=== PATIENT | female | born 1960 | race Caucasian/White ===

== ENCOUNTER 2018-08-28 12:30 | Outpatient (RCR) | payer OTHER, MEDICAID, SELFPAY ==
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
== END 2018-12-12 14:33 | disposition home or self-care (01) ==
LOC: OT 12:30
PROVIDERS: PCP Family Medicine; Visit Provider Family Medicine
DX: S06.9X9A Unspecified intracranial injury with loss of consciousness of unspecified duration, initial encounter (principal)
CPT/HCPCS: 97112; 97166; 97530

== ENCOUNTER 2018-09-28 13:30 | Outpatient (RCR) | payer OTHER, MEDICAID, SELFPAY | END 2018-11-26 11:27 | disposition home or self-care (01) | LOC: SP 13:30 | PROVIDERS: PCP Family Medicine; Visit Provider Family Medicine | DX: S06.9X9A Unspecified intracranial injury with loss of consciousness of unspecified duration, initial encounter (principal) | CPT/HCPCS: 92523; 97127 ==

== ENCOUNTER 2018-10-03 11:15 | Outpatient (RCR) | payer OTHER, MEDICAID, SELFPAY ==
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
--- NOTE | 2018-07-18 18:14 | PT.OPPOC ---
Current Diagnoses Pain in right shoulder (07/18/18) Stiffness of right shoulder, not elsewhere classified (07/18/18) Muscle weakness (generalized) (07/18/18) Dizziness and giddiness (07/18/18) Unspecified intracranial injury with loss of consciousness of unspecified duration, subsequent encounter (07/18/18) Other fall on same level, initial encounter (07/18/18) History of falling (07/18/18) Provider Visit Care Team Role Provider Type Loulou Rivas DO Attending Provider Non-Staff Primary Care Provider Specialty: Medical Address: [address] [place] [address], [id number] Email: Plan Of Care PT-OP-T Assessment and Plan Start: 07/18/18 17:37 Freq: Status: Active Protocol: Document 07/18/18 12:15 DCW (Rec: 07/18/18 18:14 DCW [id number]) Physical Therapy Assessment Rehab Potential Rehabilitation Potential Fair Evaluation Complexity Number of Personal Factors/Comorbidities 3 or More Number of Body Systems Impaired 4 or More Clinical Presentation at Evaluation Unstable Impairments Impairments Activity Tolerance Balance Coordination Functional Activities Functional Mobility Gait Pain ROM Soft Tissue Mobility Strength Other Concerns Barriers to Rehabilitation Hx of Methamphetamine and benzodiazepene abuse, ETOH abuse, cervical collar, severe TBI, occasional expressive aphasia/word-finding difficulty, confusion Goals Four Impairment Repeated falls Graduate Civil Engineer Goal (LTG) Pt to report no falls over a one month period LTG Duration 09/18/18 Three Impairment DGI Graduate Civil Engineer Goal (LTG) Pt to score 24 on DGI LTG Duration 09/18/18 Two Impairment Shoulder ROM Short Term Goal (STG) Left AROM of shoulder to 120? in both flexion and abduction STG Duration 08/18/18 Graduate Civil Engineer Goal (LTG) Right AROM to 60? flexion and abduction Right PROM to 120? flexion and abduction LTG Duration 09/18/18 One Impairment Pt does not have an appropriate home exercise program Short Term Goal (STG) Pt to be independent and complaint with an appropriate HEP STG Duration 08/18/18 Assessment Summary Assessment Pt is a complicated patient presenting with multiple deficits and rehab barriers. Between her complicated history, long list of deficits , and late arrival to her evaluation, more testing and assessment is needed at her next visit. Pt's right shoulder injury significantly limits her mobility, function, and ADL, and further testing should be performed to assess possible R/C involvement. Pt's [place] J collar limited her head turning abilities during her DGI. Pt's reported dizziness has resulted in one fall over the past two weeks, and therefore she is at an increased falls risk. Pt believes that her dizziness is mainly caused by her medication that she is taking to prevent stroke, however it could also be caused by her neck injury or her severe TBI. Pt's leg strength is decent, however she would likely benefit from skilled therapy focusing on overall strengthening, shoulder ROM, balance training, vestibuloccular reflex rehab, and gait training. Physical Therapy Plan Frequency and Duration Frequency of Treatment 2x/Week Duration of Treatment 3 months Plan of Care Start Date 07/18/18 Plan of Care End Date 10/16/18 Therapeutic Interventions Therapeutic Interventions Aquatic Therapy Balance Training Coordination Training Gait Training Home Exercise Program Manual Therapy Patient/Caregiver Education Self-Care/Home Management Soft Tissue Mobilization Therapeutic Activities Therapeutic Exercises Vestibular Rehabilitation Next Visit Focus/Plan Next Note Type Treatment Note Next Visit Plan Balance training, shoulder testing, shoulder strengthening/ROM Plan of Care Dates Plan of Care Start Date 07/18/18 Plan of Care End Date 10/16/18 Please Sign and Return: I have reviewed this Plan of Care and certify that the skilled therapy services above are required to meet the patient?s needs. Physician Signature Date Printed Name and Credentials Clinical Instructor Signature Printed Name and Credentials
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
== END 2018-12-25 11:45 | disposition home or self-care (01) ==
LOC: PHYS 11:15
PROVIDERS: PCP Family Medicine; Visit Provider Family Medicine
DX: S06.9X9A Unspecified intracranial injury with loss of consciousness of unspecified duration, initial encounter (principal)
CPT/HCPCS: 97110; 97112; 97163